=== PATIENT | female | born 1965 | race Caucasian/White ===

== ENCOUNTER → 2024-05-21 09:33 | Outpatient (BNVA) | payer OTHER, SELFPAY | PROVIDERS: PCP Nurse Practitioner; Referring Provider Nurse Practitioner; Visit Provider Physician Assistant | DX: M17.11 Unilateral primary osteoarthritis, right knee | CPT/HCPCS: 73560; 73565; 99203 ==

== ENCOUNTER → 2024-06-16 09:37 | Outpatient (BNVA) | payer OTHER, SELFPAY | PROVIDERS: PCP Nurse Practitioner; Visit Provider Student in an Organized Health Care Education/Training Program | DX: M17.11 Unilateral primary osteoarthritis, right knee | CPT/HCPCS: 99214 ==

== ENCOUNTER 2024-06-29 12:50 | Outpatient (CLI) | payer OTHER, SELFPAY ==
--- NOTE | 2024-06-29 13:30 | CT_ITS ---
WS: [id number] CT RIGHT knee, noncontrast HISTORY: knee djd TECHNIQUE: Protocol for [facility] total knee replacement has been obtained. This includes axial imaging th rough the RIGHT hip, RIGHT knee and RIGHT ankle. DLP: 955.90 mGy.cm COMPARISON: Radiograph 05/21/2024 Pelvis: Mild osteopenia. No fractures or hip displacement. Atherosclerosis iliac arteries. RIGHT knee: Severe tricompartment osteoarthritis. Large hypertrophic osteophytes with joint space mabel rowing. Small suprapatellar joint effusion. Calcific densities within the joint effusion. Negative RIGHT ankle. CT/CT knee RT [facility] [id number] IMPRESSION: CT imaging provided for [facility] robotic total knee replacement.
== END 2024-06-29 12:51 | disposition home or self-care (01) ==
LOC: RAD 12:51
PROVIDERS: PCP Nurse Practitioner; Visit Provider Student in an Organized Health Care Education/Training Program
DX: M17.11 Unilateral primary osteoarthritis, right knee (principal); I70.8 Atherosclerosis of other arteries; M25.761 Osteophyte, right knee
CPT/HCPCS: 73700

== ENCOUNTER → 2024-08-04 07:49 | Outpatient (BNVA) | payer OTHER, SELFPAY | PROVIDERS: PCP Nurse Practitioner; Visit Provider Family Medicine | DX: Z01.818 Encounter for other preprocedural examination (principal); R00.1 Bradycardia, unspecified | CPT/HCPCS: 80053; 81003; 83036; 85025; 93005 ==

== ENCOUNTER 2024-08-10 10:27 | Outpatient (CLI) | payer OTHER, SELFPAY ==
--- NOTE | 2024-08-10 10:30 | CT_ITS ---
WS: [id number] CT RIGHT knee, noncontrast HISTORY: M17.11 - Unilateral primary osteoarthritis, right knee TECHNIQUE: Protocol for [facility] total knee replacement has been obtained. This includes axial imaging th rough the RIGHT hip, RIGHT knee and RIGHT ankle. DLP: 973.97 mGy.cm COMPARISON: 06/29/2024, 05/21/2024 Pelvis: Mild osteopenia. Mild degenerative changes at the SI joints. No destructive bone process. Mil d atherosclerosis. RIGHT knee: Severe tricompartment osteoarthritis with partial lateral subluxation of the tibial plate au. Extensive osteophytes with hypertrophic bone formation and subchondral cysts surrounding the knee . Moderate-sized joint effusion numerous loose bodies are noted surrounding the knee. Calcified densi ties in the suprapatellar effusion. RIGHT ankle: Negative. CT/CT knee RT [facility] [id number] IMPRESSION: CT imaging provided for [facility] robotic total knee replacement.
== END 2024-08-10 10:28 | disposition home or self-care (01) ==
LOC: RAD 10:27
PROVIDERS: PCP Nurse Practitioner; Visit Provider Student in an Organized Health Care Education/Training Program
DX: M17.11 Unilateral primary osteoarthritis, right knee (principal); M85.88 Other specified disorders of bone density and structure, other site
CPT/HCPCS: 73700

== ENCOUNTER 2024-08-17 16:51 | Observation (INO) | payer OTHER, SELFPAY ==
[2024-08-17] VITALS (12 sets, daily range): BP systolic 124–158; BP diastolic 80–87; PULSE 61–76; RESP 14–24; TEMP 36.2–36.6; O2SAT 95–100; BMI 27.4
[2024-08-17] MEDS: lactated ringers 500 ML IV (12:07)
[2024-08-17] MEDS: acetaminophen 1,000 MG/100 ML PIGGYBACK 400 MG IV ×2 (12:10→19:46)
[2024-08-17] MEDS: ketorolac 30 mg/mL INJ IVP (12:11)
[2024-08-17] MEDS: scopolamine 1.5 Patch 1 PATCH TRANSDERMA (12:12)
[2024-08-17 12:15] LABS: Basophils # 0.1 10^3/uL (0.0-0.1); Eosinophils # 0.5 10^3/uL (0.0-0.8); Eosinophils % 7.1 %; Hematocrit 41.3 % (36-47); Lymphocytes # 2.2 10^3/uL (0.8-4.8); Lymphocytes % 30.7 %; Mean Corpuscular HGB Conc 32.9 g/dL (30-55); Mean Corpuscular Hemoglobin 31.8 pg (27-33); Mean Corpuscular Volume 96.5 fl (85-98); Mean Platelet Volume 8.8 fL (7.4-10.4); Monocytes # 0.5 10^3/uL (0.2-0.9); Monocytes % 6.7 %; Neutrophils # 3.88 10^3/uL (1.8-7.7); Neutrophils % 54.2 %; Nucleated Red Blood Cells % 0 %; Platelet Count 372 10^3/cmm (157-399); Red Blood Count 4.28 10^6/uL (3.85-5.65); White Blood Count 7.16 10^3/uL (3.29-11.43)
--- NOTE | 2024-08-17 12:22 | P.ANESASSM_ITS ---
Pre-Anesthetic Assessment Height/Weight: Height 5 ft 6 in Weight 170 lb Temp Pulse Resp BP Pulse Ox O2 Del Method 97.2 F L 76 18 138/85 97 Room Air 08/17/24 11:55 08/17/24 11:55 08/17/24 11:55 08/17/24 11:55 08/17/24 11:55 08/17/24 11:55 Preop Diagnosis: Arthritis Operation Date: 08/17/24 13:30 Proposed Procedures p Eddie Robot Total Knee Arthroplasty and possible revision implants(Right) - Miguel A Cai, DO Was Beta Abel taken within 24 hours: N/A Was Clonidine taken within 24 hours: N/A Last intake: Intake Last Liquid Date 08/16/24 Last Liquid Time 00:00 Last Solid Date 08/16/24 Last Solid Time 23:30 Social No alcohol and No tobacco Exam alert, oriented x 3, clear to auscultation bilaterally and regular rate & rhythm Anesthetic Plan ASA status: 3 Anesthesia: MAC and Regional (specify below) Other: No prior issues with anesthesia NPO since midnight History of asthma, controlled on inhalers GERD, takes omeprazole Hypertension on lisinopril Diabetes, not on insulin. A.m. BS pending Labs 08/17 reviewed and acceptable for surgery EKG 08/04/2024 showing sinus bradycardia Medications/Allergies Home Medications Medication Instructions Recorded Confirmed Last Taken Type glipizide 5 mg tablet, extended 5 mg PO DAILY 06/16/24 08/17/24 08/14/24 History release 24 hr albuterol sulfate 90 mcg/actuation 2 puff inhalation Q4H PRN 08/04/24 08/17/24 08/17/24 History aerosol inhaler Shortness Of Breath aspirin 81 mg chewable tablet 81 mg PO DAILY 08/04/24 08/14/24 08/08/24 History ferrous fumarate 200 mg (65 mg 1 tab PO DAILY 08/04/24 08/14/24 08/14/24 History iron)-vit C 25 mg tablet,extend release gabapentin 100 mg capsule 100 mg PO DAILY 08/04/24 08/17/24 08/15/24 History levothyroxine 100 mcg tablet 100 mcg PO DAILY 08/04/24 08/17/24 08/16/24 History lisinopril 5 mg tablet 5 mg PO DAILY 08/04/24 08/17/24 08/15/24 History metformin 1,000 mg tablet 1,000 mg PO BID 08/04/24 08/17/24 08/15/24 History omeprazole 20 mg capsule,delayed 20 mg PO DAILY 08/04/24 08/17/24 08/15/24 History release paroxetine HCl 30 mg tablet 30 mg PO DAILY 08/04/24 08/17/24 08/15/24 History pravastatin 40 mg tablet 40 mg PO DAILY 08/04/24 08/17/24 08/15/24 History Allergies Allergy/AdvReac Type Severity Reaction Status Date / Time piroxicam [From Feldene] Allergy Unknown Verified 08/14/24 11:39 sulfamethoxazole Allergy Unknown Verified 08/14/24 11:39 [From Bactrim] trimethoprim [From Bactrim] Allergy Unknown Verified 08/14/24 11:39 Current Medications Generic Name Dose Route Start Last Admin Trade Name Freq PRN Reason Stop Dose Admin Lactated Ringer's 500 mls @ 500 mls/hr 08/17/24 11:36 08/17/24 12:07 Lactated Ringers IV 08/17/24 12:35 500 mls/hr .Q1H ONE Administration PFSH Anesthesia Family History Mother Diabetes mellitus, type 2 Father Diabetes mellitus, type 2 Social History Smoking and tobacco/nicotine status: never used tobacco/nicotine Second hand smoke exposure: No Alcohol intake: never Substance/Drug Use: never Data Anesthesia 08/17/24 12:04 08/17/24 12:04 Short CBC 08/17/24 Range/Units 12:04 WBC 7.16 (3.29-11.43) 10^3/uL Hgb 13.60 (11.27-16.99) g/dL Hct 41.3 (36-47) % MCV 96.5 (85-98) fl Plt Count 372 (157-399) 10^3/cmm Neut % (Auto) 54.2 % Neut # (Auto) 3.88 (1.8-7.7) 10^3/uL Cardiac Studies: 2 No Data to Display
[2024-08-17] MEDS: sodium chloride 0.9% 1,000 ML 30 ML IV (12:33)
[2024-08-17 12:39] LABS: Anion Gap 16.5 (5-19); Carbon Dioxide 28 mmol/L (22-29); Chloride 101 mmol/L (98-107); Creatinine Clr Calc Pharmacy 57.0311; Glomerular Filtration Rate 50.7 mL/min (90-130); Glucose 188 mg/dL (65-115); Potassium 4.5 mmol/L (3.5-5.1); Sodium 141 mmol/L (136-145)
[2024-08-17 12:55] LABS: Calcium 9.8 mg/dL (8.5-10.5)
[2024-08-17 13:08] LABS: Blood Urea Nitrogen 24 mg/dL (8-23); Osmolality Calculated 301 mOsm/kg (285-295)
--- NOTE | 2024-08-17 13:10 | W.PM.OPSFHP ---
Same Day Surgery H&P Indication for Procedure/HPI DATE OF PROCEDURE: August 17, 2024 CHIEF COMPLAINT/INDICATIONFOR SURGICAL PROCEDURE: Right knee severe degenerative joint disease PREOP DIAGNOSIS: right knee severe degenerative joint disease PLANNED PROCEDURE: Operation Date: 08/17/24 13:30 Proposed Procedures p Eddie Robot Total Knee Arthroplasty and possible revision implants(Right) - Miguel A Cai DO Medications/Allergies* Home Medications Medication Instructions Recorded Confirmed Type glipizide 5 mg tablet, extended 5 mg PO DAILY 06/16/24 08/17/24 History release 24 hr albuterol sulfate 90 mcg/actuation 2 puff inhalation Q4H PRN 08/04/24 08/17/24 History aerosol inhaler Shortness Of Breath aspirin 81 mg chewable tablet 81 mg PO DAILY 08/04/24 08/14/24 History ferrous fumarate 200 mg (65 mg 1 tab PO DAILY 08/04/24 08/14/24 History iron)-vit C 25 mg tablet,extend release gabapentin 100 mg capsule 100 mg PO DAILY 08/04/24 08/17/24 History levothyroxine 100 mcg tablet 100 mcg PO DAILY 08/04/24 08/17/24 History lisinopril 5 mg tablet 5 mg PO DAILY 08/04/24 08/17/24 History metformin 1,000 mg tablet 1,000 mg PO BID 08/04/24 08/17/24 History omeprazole 20 mg capsule,delayed 20 mg PO DAILY 08/04/24 08/17/24 History release paroxetine HCl 30 mg tablet 30 mg PO DAILY 08/04/24 08/17/24 History pravastatin 40 mg tablet 40 mg PO DAILY 08/04/24 08/17/24 History Allergies/Adverse Reactions Allergy/AdvReac Type Severity Reaction Status Date / Time piroxicam [From Feldene] Allergy Unknown Verified 08/14/24 11:39 sulfamethoxazole Allergy Unknown Verified 08/14/24 11:39 [From Bactrim] trimethoprim [From Bactrim] Allergy Unknown Verified 08/14/24 11:39 Current Medications: Generic Name Dose Route Start Last Admin Trade Name Freq PRN Reason Stop Dose Admin Sodium Chloride 1,000 mls @ 30 mls/hr 08/17/24 11:45 08/17/24 12:33 Sodium Chloride 0.9% IV 08/18/24 11:44 30 mls/hr .Q24H OWEN Administration Pertinent History/Comorbid Conditions* Family History (Updated 05/21/24 @ 09:31 by Estephania Kraft MA) Diabetes mellitus, type 2 Mother Father Social History Smoking and tobacco/nicotine status: never used tobacco/nicotine Second hand smoke exposure: No Alcohol intake: never Substance/Drug Use: never Pertinent Exam Findings alert, oriented x 3, operative site marked and procedure specific exam findings Please refer to detailed orthopedic examination on 06/16/2024 listed below: Examination today she is roughly 5-10 degree flexion contracture and can flex roughly to 90 degrees. On stressing the MCL with valgus stress today she is more relaxed and I am able to have an endpoint increased laxity noted but a firm endpoint is appreciated. Will evaluate intraoperatively as far as the competency of the MCL Right Knee exam -positive joint effusion -Patellar crepitus with ROM -ROM 10-100 -Medial and lateral joint line tenderness -Negative Jovanna's -Patient does appear to have instability with varus valgus stress -negative Evens's test -10 to 15 degree varus deformity -Patient can wiggle toes and has a pedal pulse of 2+. Recommendations Surgery/Procedure today Other Plans: Patient is here today to proceed with right total knee arthroplasty?Eddie robotic assisted with possible revision implants. Patient understands the ins and outs procedure the risk benefits complication alternatives of surgery. Understanding risk of surgery she elects proceed with surgical intervention. All questions answered at this time. Planning for a primary right total knee arthroplasty however I do have revision implants available consisting of a Sandra TS component if she has incompetency of the MCL. Her hemoglobin A1c was 6.4. She is clear the preoperative clearance process is ready proceed with surgical intervention all questions answered at this time. Coding Level of Care Code Acute Code for Dyana Soto
[2024-08-17] MEDS: ceFAZolin 2,000 MG in sodium chloride 0.9% (plus) 50 ML 100 MG IV ×2 (14:01→21:35)
--- NOTE | 2024-08-17 14:18 | ANES.PROC ---
Anesthesia Procedures Procedure/Date: 08/17/24 Nerve Block ^: Nerve Block 1: Main Anesthesia: spinal anesthesia block Time Out Performed: Yes Consent: requested by attending/covering physician and from patient Nerve block location: adductor canal Anesthesia monitors applied: pulse oximetry, EKG, BP cuff and oxygen Nerve block position: supine Anesthetic Used: ropivicaine 0.5% Amount of anesthesia used (mL): 20 Ultrasound used to: recognize landmarks Interscalene/Femoral BLK: other needle (pjunk) and visualize local anesthetic spread Injection: neg aspiration of heme Patient Tolerated Procedure: well Complications: none
[2024-08-17] MEDS: tranexamic acid 1,000 mg/10mL SDV 1000 MG IV (14:32)
[2024-08-17] MEDS: tranexamic acid 1,000 mg/10mL SDV 1000 MG XX (14:56)
[2024-08-17] MEDS: EPINEPHrine 1 mg/mL INJ XX (14:56)
[2024-08-17] MEDS: ROPivacaine 0.2% Premix 100 mL 200 MG INTRA-ARTI (14:56)
[2024-08-17] MEDS: ketorolac 30 mg/mL INJ XX (14:56)
[2024-08-17 16:04] LABS: Glucose Point of Care 189 mg/dL (70-110)
--- NOTE | 2024-08-17 17:34 | XRR_ITS ---
PROCEDURE INFORMATION: Exam: XR Right Knee Exam date and time: 08/17/2024 5:43 PM Age: 58 years old Clinical indication: Device placement; Joint replacement hardware; Prior surgery; Surgery date: Post-operative (0-2 days); Surgery type: Post op RT knee; Additional info: S/P R tka TECHNIQUE: Imaging protocol: Radiologic exam of the right knee. Views: 1 or 2 views. COMPARISON: CT knee RT [facility] [id number] 08/10/2024 11:00 AM FINDINGS: Bones/joints: See Soft tissues finding. Soft tissues: Knee arthroplasty changes in place with postsurgical soft tissue findings. Degenerative soft tissue calcifications and osteophytes posterior to the distal femur on the lateral view. XR/XR knee RT 1-2V [id number] IMPRESSION: 1. Knee arthroplasty changes in place with postsurgical soft tissue findings. 2. Degenerative soft tissue calcifications and osteophytes posterior to the distal femur on the lateral view.
--- NOTE | 2024-08-17 17:35 | P.BOP_ITS ---
Date of Procedure: 08/17/2024 Surgeon: Miguel A Cai DO Sap Technical Developer(s): Brett Cai PA-C Procedure(s) performed: Left total knee arthroplasty?Eddie robotic assisted?(modifier 22 for case complexity) Findings of the procedure(s): Patient had severe left knee degenerative joint disease with severe contracture of roughly 15 to 80 degrees on range of motion. Patient had multiple osteophyte formation as well as loose floating osteophytes throughout the knee as well as tenting along the MCL. This required an increased amount of dissection as well as surgical releases this case took twice as long given the complex of the and significant nests of her arthritis a modifier 22 should be included with this case. Given the amount of resection and release that required she did have resection that required two 5 mm tibial baseplate augments to accommodate for a more appropriate size poly. We were able to perform all releases and the MCL was intact and kept intact throughout the case as result was able to perform a standard total knee arthroplasty with no increased constraints. Patient Toller procedure without issues or complications admitted to the hospital postoperatively with hospitalist on board for medical management. Estimated blood loss: 75 mL Specimen(s) removed: Tibia femur and patellar bone cuts removed Post-operative diagnosis: Severe left knee degenerative joint disease with knee contracture and deformity
--- NOTE | 2024-08-17 17:35 | PM.OP ---
Operative Report Date of procedure: August 17, 2024 Surgeon: Miguel A Cai DO [facility] Therapist: Brett Cai PA-C: PA was necessary for assistance in this case with leg positioning retraction and protection of neurovascular structures as well as assistance in implantation wound closure and dressing application. Procedure: Preoperative diagnosis: Right knee degenerative joint disease Post-op diagnosis: Same, Right knee severe contracture and varus deformity Procedure done: Right total knee arthroplasty, cemented?robotic assisted Eddie (modifier 22 for case complexity) case was twice is hard and complex as well as took twice as long as standard total knee replacement given patient's severe knee contracture deformity and arthritis Implants: [place] triathlon size 4 femur CR cemented?Right Sandra triathlon size? 3 tibia universal baseplate cemented Sandra triathlon symmetric patella size 29 mm [place] triathlon polyethylene 10mm [place] triathlon size 3 tibial baseplate 5 mm augments half block x 2 Surgeon: Miguel A Cai DO Estimated blood?loss: 75 mL Tourniquet 120mins IV fluids: 1000 mL Urine output: 300 mL Complications: None Condition: stable Disposition: floor Brief History: Patient is a 58-year-old female with with chronic?Right knee degenerative joint disease.? Patient has been worked up in the outpatient setting in the orthopedic office at this point time through shared decision making given? [id number] arthritis as well as failed conservative treatment, and pt would?like to proceed with a?Right total knee arthroplasty.? Through shared decision making elected to proceed with surgical intervention for?Right total knee arthroplasty possible revision implants given patient's severe knee contracture as well as deformity.? We talked about continued conservative treatment and surgical intervention as far as the risk benefits complications alternatives surgical and nonsurgical treatment options.? At this point time understanding patient risks with surgery he agrees to proceed with surgical intervention.? Once again? risk with surgery include but are not?limited to make it better make it worse blood clot, heart attack, stroke, on the table, infection, injury to nerves or vessels, persistent pain, arthrofibrosis, implant failure.? Understanding these risks patient agrees to proceed with surgical intervention consent was obtained in the office.? All questions answered. Procedure: Patient was seen and evaluated in the preoperative holding area.? Consent was reviewed and signed with patient with plan for?Right total knee arthroplasty.? All questions answered.? Correct extremity marked.? Patient seen and evaluated by the anesthesia department and once cleared for surgery was taken back to the operative suite.? Patient was placed into a supine position on the OR table.? All bony prominences were well-padded.? Patient was appropriately secured to the bed.? Patient underwent anesthesia per the anesthesia department.? Patient received spinal anesthesia and? Mcintosh catheter was placed.? A nonsterile tourniquet was applied to the?Right thigh.? At this point in time a final timeout performed.? Patient received appropriate preoperative antibiotics and TXA. Next the?Right?lower extremity was then prepped and draped in standard orthopedic fashion. Esmarch tourniquet was used exsanguinate the?Right?lower extremity.? Tourniquet was insufflated to 250 mmHg. A standard anterior incision was made over midline of the knee.? Sharp scalpel excision through skin and subcutaneous tissue full-thickness skin flaps were made.? Fascia was elevated off of the extensor retinaculum was stable with medial parapatellar arthrotomy was then made.? The performed standard sequential releases. To the mid coronal plane medially with care to stay on bone.? Immediately on entry into the joint patient was found to have severe eburnated bone and tricompartmental arthritic changes noted.? With significant osteophyte formation.? Next the the patella was then stuffed and the knee was then flexed.?? Katalina was placed superiorly around the anterior aspect of the femur this was freed of synovium and I subsequently then placed by 2 femur pins to establish my femur arrays for the Eddie robot.? These were then placed bicortically and? femur array was then appropriately secured with appropriate visualization.? Next attention was turned towards the tibial rays.? These were then drilled sequentially bicortically in parallel fashion and intraincisional.? I then placed my guide as well as my tibial array on in place.? This was appropriately secured and had excellent visualization with the Eddie robot.? Next the tibial checkpoint as well as femur checkpoint were then placed.? At this point time I then subsequently established my head center as well as my medial?lateral malleoli as well as my checkpoints.? Next utilizing standard Eddie technology I then mapped out the appropriate points and confirmation points around the femur as well as the tibia in standard fashion.? Once this was then done I then removed all osteophytes in preparation for dynamic testing.? All osteophytes were removed as well as I removed the ACL and the PCL was excised due to its significant tearing and degeneration noted.? At this point time the knee was brought into full extension and we performed our standard evaluation of our gap balancing stressing his?ligaments and extension as well as flexion appropriate adjustments were made to have appropriate gap balancing in both flexion and extension.? Patient was found to have a severe deformity range of motion roughly 15 to 80 degrees and range of motion patient did appear to have a stable MCL on stress but did have roughly a 10-15 degree varus deformity. We were able to get these numbers within close range with plan for likely sequential we more releases along the medial side as we excise the loose fragment and osteophytes medially that is tenting the MCL as well as removal of posterior osteophytes. We planned this accordingly with our cuts and plan was for soft tissue releases to further balance the knee once all cuts have been removed. This plan for final cuts.? We get a preoperative plan evaluating our implants which was a size 4 femur and a size 3 tibia.? Next we brought in the Iguana[employer] robot and sequentially made our femur cuts.? All excess bony cuts were then removed.? Finally we made our tibial cut.? Once this was done a standard PCL retractor was then placed into this position I excised the medial and?lateral meniscus.? The tibial cut was then subsequently removed all excess bony debris was removed.? I then utilized a?lamina drilling machine operator and remove the posterior osteophytes.? Patient had multiple greater than 2 cm to 3 cm size and loose bodies along the posterior aspect of the posterior condyles. These were subsequently removed atraumatically. Next I subsequently with the knee in flexion and PCL there was significant contracture and deliverance of the tibia as well as result I placed a Hohmann protecting the MCL and subsequently requiring long meticulous dissection of the medial tibial plateau there was the sheared off osteophyte that was evident on x-ray this was peeled off staying on bone and subperiosteally elevating this fragment free and then this was subsequently removed this had been tenting the MCL the MCL was still competent. There was also a loose posterior medial osteophyte as well. Once this was all completely dissected I had increased an opening on my medial joint space now that all osteophytes have been removed but the MCL remained to be intact and competent. Once all obtainable osteophytes was performed I then proceeded with trialing with my implants. Once again this part took twice as long as standard given the complexity of this patient's knee contracture as well as arthritis. At this point time sized the tibia and confirmed this was a size 3.? I utilized our blunt probe to establish rotation of tibial implant.? My gaps were assessed and plan was for a 15 mm poly. Once this was done I then placed my tibia size 3 trial in appropriate position and then subsequently placed tibial pins to hold this into place placed a size 14 mm poly as well as a size 4 femur which was appropriately impacted in place knee was then subsequently brought into extension. We unfortunately did not have a trial 15 poly but the 16 was too tight in flexion extension. I felt a 15 would be the most appropriate poly. The 14 mm was brought extension had a play of 1 mm both medially and laterally with varus valgus stress in extension. In flexion, I did appreciate the patient had a slightly tighter compartment laterally in flexion and as a result I utilized a tonsil I removed the poly and subsequently performed a release of the popliteus to help with my flexion gap laterally. I then replaced the 14 mm poly and once again this was symmetric in both flexion extension with only roughly a millimeter of play with varus valgus stress of both as a result elected for a 15 mm poly would be appropriate. In order to not have to think of a poly I decided to add an augment on my tibia of both 5 mm to both medially and laterally of my tibial baseplate this to allow for more polyethylene options. I was satisfied with this trial implantations and the stability of this knee and as result no need for further constraint implants and will plan for the stated implants above. Once again this trial process took twice as long as baseline given the complex any deformity if patient. At this point I was satisfied with these implants these were then verified and opened on the back table size 3 tibia with two 5 mm tibial augments for both medial and lateral as well as a 50 mm cemented stem, size 4 femur,? size 10 mm polythickness.? We did confirm appropriate gap balancing and stresses as well as alignment utilizingKalyani Morgan and were satisfied with this plan.? ?At this point time with my trials in place I then towel clip the patella everted this made appropriate measurements subsequently utilizing freehand technique performed by patellar resurfacing this was confirmed to be appropriate resection and subsequently sized to be a 29 mm symmetric.? My drill peg guides were then clamped and appropriate position and appropriate position in the patella for appropriate tracking and parallel with the joint.? Pegs were drilled trial implant was placed and the knee was then subsequently ranged and found to have excellent patellar tracking.? Femur pegs were then drilled.? All checkpoints as well as guidepins and arrays were removed and appropriate counts made.? Satisfied with our tibial placement rotation I then utilized the keel punch and prepped the tibia.? At this point time all of our trial implants were removed.? The wound bed? was thoroughly irrigated and dried and prepped for cementation.? Cement was mixed on the back table.? Tibia 50 mm stem was placed on the tibial baseplate as well as the two 5 mm augments both medially and laterally were secured on the baseplate. Once cement was ready this was then covered onto the tibia and the tibial baseplate was then impacted and all excess cement was removed.? Next the polyethylene was then impacted into place on the tibial baseplate.? Next cement was placed onto the femur as well as under the femur implants and impacted in to place and all excess cement was extruded and removed.? Knee was taken into full extension? to clear all excess cement was removed.? Warm saline was placed over the joint.? I then towel clip patella and dried for cementation. cemented the patella into place.? This was all clamped and the cement was allowed to cure.? Thorough irrigation performed with pulse?lavage.? I then placed my periarticular injection while the cement was curing.? Once cured the knee was taken through range of motion and had excellent stability and gaps were balanced in flexion and extension.? Tourniquet was then deflated. Tourniquet time was an 120 minutes which was twice as long as a standard total knee replacement given the complexly of patient's case requiring further dissection and sequential releases To obtain a balanced knee, hemostasis satisfactory with electrocautery.? Vancomycin powder was placed to the wound bed for infection prophylaxis. next I then subsequently closed the capsule with Ethibond suture as well as a running strata fix suture.? Knee was then taken through range of motion 30 times.? Next the skin was then closed in?layered fashion of running stratifix sutures of deep and subcutenous tissue and skin.? ?closed in flexion and Prineo glue was then placed over the incision this allowed to cure.? Incision was covered with gloria dressing, with ABDs soft roll and Davidson wrap.? Patient was then awakened from anesthesia and taken to PACU in stable condition. Disposition: Patient taken to PACU in stable condition will be admitted to the floor for pain control PT/OT weight-bear as tolerated?Right?lower extremity dressing changes as needed, DVT prophylaxis. Pain control. Patient will receive appropriate postoperative antibiotics. patient will be seen today by the internal medicine team for medical management.? Patient will follow up with the office in 2 weeks.? Patient understands agrees with current plan.? All questions answered.
--- NOTE | 2024-08-17 17:37 | PM.PACU ---
PACU note Narrative: Patient is a 58-year-old female just underwent a right total knee arthroplasty. Pt transferred to PACU in stable condition. Dressing is dry. pt is awake and alert. Compartments are soft and compressible. Pt can wiggle toes and plantarflex and dorsiflex foot. pt able to perform straight leg raise, Femoral nerve intact. Distal pulses are palpable toes are warm and well-perfused. Cap refill is normal and under 2 seconds. Sensation to foot is intact. Pain is controlled. Exam: awake Disposition: admitted
--- NOTE | 2024-08-17 17:56 | PC.NURSE ---
1753 - KORIN Celis at bedside to assess teletypesetter monitor - no new orders rec'd
--- NOTE | 2024-08-17 18:31 | ANE.PACU2 ---
Inpatient post-anesthesia follow up: Airway intact: Yes Vital signs: Temperature 97.9 F Pulse Rate 72 Respiratory Rate 15 Blood Pressure 148/85 Pulse Oximetry 95 Oxygen Delivery Me thod Room Air Oxygen Flow Rate 6 Fraction of Inspir ed Oxygen Hydration adequate: Yes Nausea and vomiting: No Pain level: 1 Mental status: Baseline
[2024-08-17 18:53] LABS: Glucose Point of Care 108 mg/dL (70-110)
[2024-08-17] MEDS: mupirocin oint 22 gm 1 APPLIC NASAL (18:59)
[2024-08-17] MEDS: calcium carb-vit d 600mg/400unit 1 Tablet 1 EACH PO (18:59)
[2024-08-17] MEDS: docusate sodium 100 mg Capsule PO (18:59)
[2024-08-17] MEDS: lactated ringers 1,000 ML 100 ML IV (19:00)
[2024-08-17] MEDS: tranexamic acid 1,000 MG/100 ML PREMIX 600 MG IV (19:17)
[2024-08-17] MEDS: iron polysaccharide complex 150 mg Capsule PO (19:46)
[2024-08-17] MEDS: sennosides-docusate Tablet 2 TAB PO (19:46)
[2024-08-17] MEDS: chlorhexidine gluconate 0.12% Btl 473 mL 30 ML MUCOUS MEM (21:35)
[2024-08-17 21:46] LABS: Glucose Point of Care 174 mg/dL (70-110)
[2024-08-18 00:17] VITALS: BP 129/75; PULSE 65; RESP 16; O2SAT 97
[2024-08-18 01:00] VITALS: BP 135/86; PULSE 66; O2SAT 93
[2024-08-18 04:00] VITALS: BP 121/77; PULSE 60; RESP 16; TEMP 36.6; O2SAT 96
[2024-08-18] MEDS: acetaminophen 1,000 MG/100 ML PIGGYBACK 400 MG IV ×2 (04:11→12:41)
[2024-08-18] MEDS: ceFAZolin 2,000 MG in sodium chloride 0.9% (plus) 50 ML 100 MG IV ×2 (05:35→15:21)
[2024-08-18] MEDS: lactated ringers 1,000 ML 100 ML IV (05:35)
[2024-08-18 05:49] LABS: Basophils # 0.1 10^3/uL (0.0-0.1); Basophils % 0.6 %; Eosinophils # 0.5 10^3/uL (0.0-0.8); Eosinophils % 4.6 %; Hematocrit 34.8 % (36-47); Lymphocytes # 2.4 10^3/uL (0.8-4.8); Lymphocytes % 23.5 %; Mean Corpuscular HGB Conc 31.6 g/dL (30-55); Mean Corpuscular Hemoglobin 32.4 pg (27-33); Mean Corpuscular Volume 102.4 fl (85-98); Mean Platelet Volume 8.9 fL (7.4-10.4); Monocytes # 0.7 10^3/uL (0.2-0.9); Monocytes % 7.3 %; Neutrophils # 6.43 10^3/uL (1.8-7.7); Neutrophils % 63.8 %; Nucleated Red Blood Cells % 0 %; Platelet Count 333 10^3/cmm (157-399); Red Cell Distribution Width 11.9 % (12.1-15.1); White Blood Count 10.08 10^3/uL (3.29-11.43)
[2024-08-18 06:09] LABS: Anion Gap 14.5 (5-19); Blood Urea Nitrogen 22 mg/dL (8-23); Calcium 8.8 mg/dL (8.5-10.5); Carbon Dioxide 26 mmol/L (22-29); Chloride 105 mmol/L (98-107); Creatinine Clr Calc Pharmacy 62.7342; Glomerular Filtration Rate 56.6 mL/min (90-130); Glucose 170 mg/dL (65-115); Osmolality Calculated 299 mOsm/kg (285-295); Potassium 4.5 mmol/L (3.5-5.1); Sodium 141 mmol/L (136-145)
[2024-08-18 07:49] LABS: Glucose Point of Care 137 mg/dL (70-110)
[2024-08-18] MEDS: apixaban 5 mg Tablet 2.5 MG PO (09:04)
[2024-08-18] MEDS: docusate sodium 100 mg Capsule PO (09:04)
[2024-08-18] MEDS: iron polysaccharide complex 150 mg Capsule PO (09:04)
[2024-08-18] MEDS: mupirocin oint 22 gm 1 APPLIC NASAL (09:04)
[2024-08-18] MEDS: sennosides-docusate Tablet 2 TAB PO (09:04)
[2024-08-18] MEDS: TRAMadol 50 mg Tablet PO (09:04)
[2024-08-18] MEDS: calcium carb-vit d 600mg/400unit 1 Tablet 1 EACH PO (09:04)
[2024-08-18] MEDS: multivitamin therapeutic Tablet 1 TAB PO (09:04)
[2024-08-18] MEDS: chlorhexidine gluconate 0.12% Btl 473 mL 30 ML MUCOUS MEM ×2 (09:05→13:06)
[2024-08-18 09:31] VITALS: BP 161/88; PULSE 61; RESP 16; TEMP 37.4; O2SAT 97
[2024-08-18 11:27] LABS: Glucose Point of Care 231 mg/dL (70-110)
--- NOTE | 2024-08-18 12:21 | P.DS_ITS ---
Discharge Providers Date of Admission: 08/17/24 16:51 Date of Discharge: August 18, 2024 Attending Provider at Admission: Miguel A Cai DO Attending Provider at Discharge: Miguel A Cai DO Consults: Dr. Guillen?hospitalist Primary Care Provider: LAUREN Carmichael Reason for Visit Reason for Visit: M25.569 Brief History: Status post right total knee arthroplasty Hospital Course Hospital Course Patient presented to the preoperative holding area with plan for right total knee arthroplasty after patient has been worked up in the outpatient setting for failed conservative treatment of right knee degenerative joint disease. Once cleared by anesthesia for surgery patient subsequently was taken back to the operative suite underwent anesthesia per anesthesia department and then subsequently underwent a right total knee arthroplasty with Eddie guidance with a modifier 22 given patient's severe knee arthritis complexity and deformity, knee contracture. Procedure was performed without any complications patient was taken to PACU in stable condition patient recovered well in PACU and then was admitted to the floor postoperatively internal medicine was consulted and on board for medical management and assistance with care. Patient received appropriate PT/OT, postoperative antibiotics, postoperative TXA, pain control, postoperative DVT prophylaxis. Elevation and ice. Patient encouraged for knee range of motion allowed weightbearing as tolerated to the operative lower extremity. Dressing was changed as needed, labs were monitored daily. Patient recovered well postoperatively and worked well and progressed well with therapy. It was determined on postoperative day 1 the patient was stable for discharge from an orthopedic standpoint and medicine. Patient was comfortable with discharge and plan was discharged home. Patient received appropriate discharge instructions as well as pain medication and DVT prophylaxis postoperatively. Given appropriate instructions for dressing management. Patient will follow-up with Dr. Cai/orthopedics in the office in 2 weeks. All questions answered. Understand if there is any issues questions or concerns and contact the office. Physical Exam Narrative: Examination of the right knee demonstrates dressings on in place clean dry and intact terri dressing on in place with good seal. Patient has normal postoperative swelling and tenderness palpation diffusely about the knee. She is able to wiggle her toes plantarflex and dorsiflex ankle sensations intact light touch distally. Distal pulses are palpable. Calf soft and nontender compartment soft compressible. Urinary Catheter Management: Mcintosh: Cath Placed During This Visit: yes, but has since been removed by the nurse Reason for Continuing Indwelling Catheter: Decision to DC Catheter Urinary Catheter Date of Insertion: 08/17/24 Urinary Catheter Time of Insertion: 14:30 Date Urinary Catheter Removed: 08/18/24 Time Urinary Catheter Discontinued: 09:32 Discharge Data Studies Completed and Pending Completed Studies During Hospitalization Category Date Time Status XR knee RT 1-2V 01780 Routine Exams 08/17/24 17:34 Completed Pending at discharge Category Date Time Status Basic Metabolic Panel AM LABS Lab 08/19/24 04:00 Ordered Basic Metabolic Panel AM LABS Lab 08/20/24 04:00 Ordered Complete Blood Count w/Auto AM LABS Lab 08/19/24 04:00 Ordered Complete Blood Count w/Auto AM LABS Lab 08/20/24 04:00 Ordered Radiology Impressions Knee X-Ray 08/17/24 17:34 IMPRESSION: 1. Knee arthroplasty changes in place with postsurgical soft tissue findings. 2. Degenerative soft tissue calcifications and osteophytes posterior to the distal femur on the lateral view. Laboratory Results WBC 10.08 10^3/uL (3.29-11.43) 08/18/24 05:30 RBC 3.40 10^6/uL (3.85-5.65) L 08/18/24 05:30 Hgb 11.00 g/dL (11.27-16.99) L 08/18/24 05:30 Hct 34.8 % (36-47) L 08/18/24 05:30 MCV 102.4 fl (85-98) H D 08/18/24 05:30 MCH 32.4 pg (27-33) 08/18/24 05:30 MCHC 31.6 g/dL (30-55) 08/18/24 05:30 RDW 11.9 % (12.1-15.1) L 08/18/24 05:30 Plt Count 333 10^3/cmm (157-399) 08/18/24 05:30 MPV 8.9 fL (7.4-10.4) 08/18/24 05:30 Neut % (Auto) 63.8 % 08/18/24 05:30 Lymph % (Auto) 23.5 % 08/18/24 05:30 [place] % (Auto) 7.3 % 08/18/24 05:30 Eos % (Auto) 4.6 % 08/18/24 05:30 Baso % (Auto) 0.6 % 08/18/24 05:30 Neut # (Auto) 6.43 10^3/uL (1.8-7.7) 08/18/24 05:30 Lymph # (Auto) 2.4 10^3/uL (0.8-4.8) 08/18/24 05:30 [place] # (Auto) 0.7 10^3/uL (0.2-0.9) 08/18/24 05:30 Eos # (Auto) 0.5 10^3/uL (0.0-0.8) 08/18/24 05:30 Baso # (Auto) 0.1 10^3/uL (0.0-0.1) 08/18/24 05:30 Nucleated RBC % (auto) 0 % 08/18/24 05:30 Nucleated RBCs # 0.0 /100WBC 08/18/24 05:30 Sodium 141 mmol/L (136-145) 08/18/24 05:30 Potassium 4.5 mmol/L (3.5-5.1) 08/18/24 05:30 Chloride 105 mmol/L (98-107) 08/18/24 05:30 Carbon Dioxide 26 mmol/L (22-29) 08/18/24 05:30 Anion Gap 14.5 (5-19) 08/18/24 05:30 BUN 22 mg/dL (8-23) 08/18/24 05:30 Creatinine 1.0 mg/dL (0.5-0.9) H 08/18/24 05:30 GFR Calculation 56.6 mL/min (90-130) L 08/18/24 05:30 Glucose 170 mg/dL (65-115) H 08/18/24 05:30 POC Glucose 231 mg/dL (70-110) H 08/18/24 11:20 Calculated Osmolality 299 mOsm/kg (285-295) H 08/18/24 05:30 Calcium 8.8 mg/dL (8.5-10.5) 08/18/24 05:30 Blood Type A Positive 08/17/24 12:04 Rho(D) Type Rh positive 08/17/24 12:04 Antibody Screen Negative 08/17/24 12:04 Vitals Last Vital Signs Temp 99.4 F 08/18/24 09:31 Pulse 61 08/18/24 09:31 Resp 16 08/18/24 09:31 BP 161/88 08/18/24 09:31 Pulse Ox 97 08/18/24 09:31 O2 Del Method Room Air 08/18/24 09:31 O2 Flow Rate 6 08/17/24 17:35 Discharge Plan Discharge Patient Disposition: Home Condition: Stable Prescriptions: New Eliquis 2.5 mg tablet 2.5 mg PO BID 14 Days Qty: 28 0RF oxycodone 5 mg tablet 5 mg PO Q6H PRN (Reason: pain postop) 7 Days Qty: 28 0RF Continued glipizide 5 mg tablet extended release 24hr 5 mg PO DAILY pravastatin 40 mg tablet 40 mg PO DAILY gabapentin 100 mg capsule 100 mg PO DAILY levothyroxine 100 mcg tablet 100 mcg PO DAILY paroxetine HCl 30 mg tablet 30 mg PO DAILY metformin 1,000 mg tablet 1,000 mg PO BID omeprazole 20 mg capsule,delayed release(DR/EC) 20 mg PO DAILY albuterol sulfate 90 mcg/actuation HFA aerosol inhaler 2 puff inhalation Q4H PRN (Reason: Shortness Of Breath) ferrous fumarate-vitamin C 200 mg (65 mg iron)-25 mg tablet extended release 1 tab PO DAILY Changed lisinopril 5 mg tablet 10 mg PO DAILY Qty: 60 0RF Held aspirin 81 mg tablet,chewable 81 mg PO DAILY Hold Instructions: Resume on 09/01/24. Discharge Orders: Discharge Order (Routine); Ordered 08/18/24 Ordered By: Miguel A Cai Referrals: Miguel A Cai DO [Physician] - 09/01/24 10:15 am (You have an appointment with Dr. Cai on September 01 at 10:15.) Discharge Diet: Regular Discharge Activity: Limit activity as instructed and Use walker/crutches as instructed Patient Instructions: Ondansetron (By mouth) (Zofran, Zofran ODT, Zuplenz), Oxycodone, Slow Release (By mouth) (Oxycontin, Xtampza ER), Apixaban (By mouth) (Eliquis), Acute Wound Care (DC), Precautions after Total Joint Replacement Surgery (DC), Total Knee Replacement (DC), Opioid Safety, Post Anesthesia Care Activity Restrictions/Additional Instructions: Ortho Discharge Instructions: Terri Dressing--Keep dressing on and dry. After 3 days you can remove some of the dressing and shower. disconnect battery pack when showering. Terri dressing will stay on until follow up appt in 2 weeks. The battery pack for the dressing will at 5-7 days. Battery pack can be removed and discarded once batteries . Patient may weight-bear as tolerate to the operative extremity Utilize crutches as needed Encourage knee range of motion Ice and elevate as needed for pain and swelling Take pain medication as prescribed Take antinausea medication as needed Pain medication can cause constipation. take [id number] stool softeners and or MiraLAX. Take prescribed Eliquis twice daily for the next 14 days for blood clot prevention May supplement for pain with ibuprofen [id number] as needed No baths or soaks Follow-up in the orthopedic office in 2 weeks Contact the office for any questions or concerns Discharge Attestations Time Spent in Discharge Care*: less than 30 min Quality Metrics Clinical Quality Measures [ No reported AMI, CVA or VTE this stay] Coding Level of Care Code Acute Code for Chg Fwd Time Spent (min) 20
[2024-08-18] MEDS: insulin lispro 100 unit/1 mL SUBCUT (12:41)
--- NOTE | 2024-08-18 13:07 | P.CONIM_ITS ---
Providers/Reason For Consult 2 Consulting Physician/Specialty*: Hospitalist Reason for Consult*: Postop management Attending Physician: Miguel A Cai DO Primary Care Provider: LAUREN Carmichael History of Present Illness History of Present Illness Janay Becker is a 58 year old female status post right total knee arthroplasty, patient carries history of diabetes, hypertension, hospital service was requested for postoperative medical management. Patient did not experience any postoperative complications,, afebrile, H&H stable, Review of Systems 2 Const: Denies: malaise Eyes: Denies: change in vision ENMT: Denies: throat pain Card: Denies: chest pain Medications/Allergies Home Medications Medication Instructions Recorded Confirmed Last Taken Type glipizide 5 mg tablet, extended 5 mg PO DAILY 06/16/24 08/17/24 08/14/24 History release 24 hr albuterol sulfate 90 mcg/actuation 2 puff inhalation Q4H PRN 08/04/24 08/17/24 08/17/24 History aerosol inhaler Shortness Of Breath aspirin 81 mg chewable tablet 81 mg PO DAILY 08/04/24 08/14/24 08/08/24 History ferrous fumarate 200 mg (65 mg 1 tab PO DAILY 08/04/24 08/14/24 08/14/24 History iron)-vit C 25 mg tablet,extend release gabapentin 100 mg capsule 100 mg PO DAILY 08/04/24 08/17/24 08/15/24 History levothyroxine 100 mcg tablet 100 mcg PO DAILY 08/04/24 08/17/24 08/16/24 History lisinopril 5 mg tablet 5 mg PO DAILY 08/04/24 08/17/24 08/15/24 History metformin 1,000 mg tablet 1,000 mg PO BID 08/04/24 08/17/24 08/15/24 History omeprazole 20 mg capsule,delayed 20 mg PO DAILY 08/04/24 08/17/24 08/15/24 History release paroxetine HCl 30 mg tablet 30 mg PO DAILY 08/04/24 08/17/24 08/15/24 History pravastatin 40 mg tablet 40 mg PO DAILY 08/04/24 08/17/24 08/15/24 History oxycodone 5 mg tablet 5 mg PO Q6H PRN pain postop 7 days 08/18/24 Unknown Rx #28 tabs Allergies Allergy/AdvReac Type Severity Reaction Status Date / Time piroxicam [From Feldene] Allergy Unknown Verified 08/14/24 11:39 sulfamethoxazole Allergy Unknown Verified 08/14/24 11:39 [From Bactrim] trimethoprim [From Bactrim] Allergy Unknown Verified 08/14/24 11:39 PFSH Acute 2 PFSH: Medical History (Updated 08/18/24 @ 13:09 by Shikha Guillen MD) Hypertension Type 2 diabetes mellitus Surgical History (Updated 08/18/24 @ 13:09 by Shikha Guillen MD) S/P total knee arthroplasty Family History Mother Diabetes mellitus, type 2 Father Diabetes mellitus, type 2 Social History Smoking and tobacco/nicotine status: never used tobacco/nicotine Second hand smoke exposure: No Alcohol intake: never Substance/Drug Use: never Vitals/I&O/Wt Last Vital Signs Temp 97.6 F 08/17/24 18:00 Pulse 62 08/17/24 18:00 Resp 14 08/17/24 18:00 BP 142/80 08/17/24 18:00 Pulse Ox 95 08/17/24 18:00 O2 Del Method Room Air 08/17/24 18:00 O2 Flow Rate 6 08/17/24 17:35 08/17/24 08/17/24 08/17/24 06:59 14:59 22:59 Intake Total 650 / 650 50 / 700 Output Total 375 / 375 Balance 650 / 650 -325 / 325 Weight last 48 hrs Weight 77.111 kg Physical Exam 2 Narrative: Awake and alert Pleasant cooperative Surgical site without any active drainage Covered with dressing Pleasant and cooperative Hypertensive Currently room air Abdomen soft Urinary Catheter Management: Mcintosh: Cath Placed During This Visit: yes Urinary Catheter Date of Insertion: 08/17/24 Urinary Catheter Time of Insertion: 14:30 Data 08/18/24 05:30 08/18/24 05:30 A&P Assessment and plan (1) Type 2 diabetes mellitus: (2) Hypertension: (3) S/P total knee arthroplasty: Plan Postop day 1 No postop complications Hyperglycemia noted Patient will resume her metformin, glipizide once discharge In the hospital she required insulin sliding scale She was given IV fluids CBC stable She is getting DVT prophylaxis of Eliquis at the discharge Medically cleared to be discharged PT evaluation pending Consult Attestations 2 Medical Necessity Statement: As per orthopedics Diagnoses Type 2 diabetes mellitus E11.9 Hypertension I10 S/P total knee arthroplasty Z96.659
[2024-08-18 16:33] VITALS: BP 129/82; PULSE 64; RESP 16; TEMP 36.7; O2SAT 97
== END 2024-08-18 16:58 | disposition home or self-care (01) ==
LOC: OBGYN 16:52
PROVIDERS: Physician Assistant; Admitting Provider Student in an Organized Health Care Education/Training Program; PCP Nurse Practitioner; Visit Provider Student in an Organized Health Care Education/Training Program
PROC: 8E0Y0CZ Robotic Assisted Procedure of Lower Extremity, Open Approach (ICD-10-PCS; CPT 27447; principal; 2024-08-17 13:00)
DX: M17.11 Unilateral primary osteoarthritis, right knee (principal); M24.561 Contracture, right knee; M21.161 Varus deformity, not elsewhere classified, right knee; I10 Essential (primary) hypertension; E11.9 Type 2 diabetes mellitus without complications; Z79.82 Long term (current) use of aspirin
CPT/HCPCS: 20985; 27447; 36415; 36416; 51702; 73560; 80048; 82962; 85025; 86850; 86900; 96372; 97110; 97116; 97161; 97165; C1776; G0378; J0131; J0171; J0690; J1815; J1885; J2704; J2795; J3010; J7030; J7120

== ENCOUNTER → 2024-09-01 16:02 | Outpatient (BNVA) | payer OTHER, SELFPAY | PROVIDERS: PCP Nurse Practitioner; Visit Provider Student in an Organized Health Care Education/Training Program | DX: Z96.651 Presence of right artificial knee joint (principal); M17.11 Unilateral primary osteoarthritis, right knee | CPT/HCPCS: 73560; 73565 ==

== ENCOUNTER 2024-09-15 06:00 | Outpatient (RCR) | payer OTHER, SELFPAY | END 2024-10-01 23:59 | disposition home or self-care (01) | LOC: MPT 06:00 | PROVIDERS: Visit Provider Student in an Organized Health Care Education/Training Program | DX: Z47.1 Aftercare following joint replacement surgery (principal); Z96.651 Presence of right artificial knee joint | CPT/HCPCS: 97110; 97112; 97161 ==

== ENCOUNTER 2024-10-02 06:00 | Outpatient (RCR) | payer OTHER, SELFPAY | END 2024-10-31 23:59 | disposition home or self-care (01) | LOC: MPT 06:00 | PROVIDERS: Visit Provider Student in an Organized Health Care Education/Training Program | DX: Z47.1 Aftercare following joint replacement surgery (principal); Z96.651 Presence of right artificial knee joint | CPT/HCPCS: 97110; 97116 ==

== ENCOUNTER → 2024-10-13 08:48 | Outpatient (BNVA) | payer OTHER, SELFPAY | PROVIDERS: Visit Provider Student in an Organized Health Care Education/Training Program | DX: Z96.651 Presence of right artificial knee joint (principal) | CPT/HCPCS: 73560; 73565; 99024 ==

== ENCOUNTER 2024-11-01 06:00 | Outpatient (RCR) | payer OTHER, SELFPAY | END 2024-11-09 23:59 | disposition home or self-care (01) | LOC: MPT 06:00 | PROVIDERS: Visit Provider Student in an Organized Health Care Education/Training Program | DX: Z47.1 Aftercare following joint replacement surgery (principal); Z96.651 Presence of right artificial knee joint | CPT/HCPCS: 97110; 97112 ==

== ENCOUNTER → 2025-01-19 08:45 | Outpatient (BNVA) | payer OTHER, SELFPAY | PROVIDERS: PCP Nurse Practitioner; Visit Provider Student in an Organized Health Care Education/Training Program | DX: Z96.651 Presence of right artificial knee joint (principal) | CPT/HCPCS: 73560; 73565; 99213 ==

== ENCOUNTER → 2025-04-20 08:54 | Outpatient (BNVA) | payer OTHER, SELFPAY | PROVIDERS: PCP Nurse Practitioner; Visit Provider Podiatrist Foot & Ankle Surgery | DX: M25.572 Pain in left ankle and joints of left foot (principal); M79.672 Pain in left foot; M19.072 Primary osteoarthritis, left ankle and foot; Q66.222 Congenital metatarsus adductus, left foot | CPT/HCPCS: 73620; 99204 ==

== ENCOUNTER → 2025-06-28 14:05 | Outpatient (BNVA) | payer OTHER, SELFPAY | PROVIDERS: PCP Nurse Practitioner; Visit Provider Podiatrist Foot & Ankle Surgery | DX: M19.072 Primary osteoarthritis, left ankle and foot (principal); Q66.222 Congenital metatarsus adductus, left foot | CPT/HCPCS: 99213 ==

== ENCOUNTER → 2025-08-24 09:00 | Outpatient (BNVA) | payer OTHER, SELFPAY | PROVIDERS: PCP Nurse Practitioner; Visit Provider Student in an Organized Health Care Education/Training Program | DX: Z98.890 Other specified postprocedural states (principal); Z47.1 Aftercare following joint replacement surgery; Z96.651 Presence of right artificial knee joint | CPT/HCPCS: 73560; 73565; 99213 ==

== ENCOUNTER → 2025-09-21 13:08 | Outpatient (BNVA) | payer OTHER, SELFPAY | PROVIDERS: PCP Nurse Practitioner; Visit Provider Podiatrist Foot & Ankle Surgery | DX: M19.072 Primary osteoarthritis, left ankle and foot (principal); M20.42 Other hammer toe(s) (acquired), left foot | CPT/HCPCS: 99213 ==